=== PATIENT | female | born 1960 | race Caucasian/White ===

== ENCOUNTER 2019-05-21 14:06 | Emergency (ER) | payer MEDICARE, MEDICAID ==
[~2019-05-21] VITALS: Ht 165.1 cm; Wt 105.2 kg
[~2019-05-21 14:06] MED LIST: HYDR-3454 PO
--- OUTSIDE RECORDS SUMMARY | 2019-05-21 14:22 | XMS REPORT ---
Author Author VIRGIL Contreras Organization [facility] Address Unknown Care Team Providers Care Hvac Service Tech Name Role Phone VIRGIL Contreras Unavailable PROBLEMS Type Condition ICD9-CM Code [id number] Code Onset Dates Condition Status SNOMED Code Problem Routine general medical examination at health care facility V70.0 Active 119008586 ALLERGIES Substance Reaction Event Type Date Status Sulfa (sulfonamide Antibiotics) Unknown Non Drug Allergy Dec, Active Penicillins Unknown Non Drug Allergy Dec, Active SOCIAL HISTORY Never Assessed PLAN OF CARE Activity Details Follow Up prn Reason:TE 20&21 VITAL SIGNS Height 65 in 2016-12-24 Blood pressure systolic 162 mmHg 2016-12-24 Blood pressure diastolic 86 mmHg 2016-12-24 MEDICATIONS Medication Instructions Dosage Frequency Start Date End Date Duration Status metformin 500 mg take 1 tablet (500 mg) by oral route once daily with the evening meal Apr, Active Clindamycin HCl 150 MG Orally 3 times daily 1 capsule 7 days Active RESULTS No Results PROCEDURES Procedure Date Ordered Result Body Site LTD ORAL EVALUATION - PROBLEM FOCUS Dec 24, 2016 INTRAORL-PERIAPICAL 1 FILM 26168 Dec 24, 2016 IMMUNIZATIONS No Known Immunizations MEDICAL (GENERAL) HISTORY Type Description Date Surgical History Appendix removed Surgical History Two knee replacements (Both knees) Surgical History Hysterectomy Surgical History Right hand M3,P3 removal
--- OUTSIDE RECORDS SUMMARY | 2019-05-21 14:22 | XMS REPORT ---
Author Author Migration, Doctor Organization [facility] Address Unknown Phone Unavailable Care Team Providers Care Hub Lead Name Role Phone Migration, Doctor Unavailable Unavailable PROBLEMS Type Condition ICD9-CM Code PVB79-ZP Code Onset Dates Condition Status SNOMED Code Problem Unspecified viral hepatitis without mention of hepatic coma B19.9 Active 918724401 Problem Osteoarthritis of knee M17.10 10 Apr, 2009 Active 432666462 Problem Unspecified asthma(493.90) J45.909 Active 74365133 Problem Essential hypertension I10 Active 58280041 Problem Depressive disorder, not elsewhere classified F32.9 Active 58051486 Problem 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 15 Sep, 2010 Active 785914550 Problem Migraine, unspecified, without mention of intractable migraine without mention of status migrainosus G43.909 Active 71316081 Problem Morbid obesity E66.01 Apr, Active 384077329 Problem Hyperlipemia E78.5 Feb, Active 06881595 ALLERGIES Substance Reaction Event Type Date Status Sulfa (sulfonamide Antibiotics) Unknown Non Drug Allergy Feb, Active Penicillins Unknown Non Drug Allergy Feb, Active ENCOUNTERS Encounter Location Date Diagnosis [address] [address] March, [address] [address] March, Encntr for general adult medical exam w/o abnormal findings Z00.[address] [address] Feb, [address] [address] Feb, [address] [address] Jan, [facility] [address] [facility] [id number] [address] Oct, [facility] [address] [facility] [id number] [place] [phone] Oct, [facility] [id number] [place] [phone] Oct, [facility] [id number] [place] [phone] Apr, [facility] [id number] [place] [phone] Dec, Dental examination Z01.20 [facility] [id number] [place] [phone] Apr, Dental examination V72.2 [facility] [address] [address] Feb, [facility] [id number] [place] [phone] Feb, [facility] [id number] [place] [phone] Apr, [facility] [id number] [place] [phone] Apr, [facility] [id number] [place] [phone] Apr, [facility] [id number] [place] [phone] Apr, [facility] [id number] [place] [phone] Apr, [facility] [id number] [place] [phone] Apr, IMMUNIZATIONS No Known Immunizations SOCIAL HISTORY Never Assessed REASON FOR VISIT [facility] PLAN OF CARE VITAL SIGNS MEDICATIONS Medication Instructions Dosage Frequency Start Date End Date Duration Status metformin 500 mg take 1 tablet (500 mg) by oral route once daily with the evening meal Apr, Active RESULTS No Results PROCEDURES No Known procedures INSTRUCTIONS MEDICATIONS ADMINISTERED No Known Medications MEDICAL (GENERAL) HISTORY Type Description Date Surgical History Appendix removed Surgical History Two knee replacements (Both knees) Surgical History Hysterectomy Surgical History Right hand M3,P3 removal
--- OUTSIDE RECORDS SUMMARY | 2019-05-21 14:22 | XMS REPORT | Continuity of Care Document ---
Author Organization Unknown Address Unknown Allergies Active Description Code Type Severity Reaction Onset Reported/Identified Relationship to Patient Clinical Status Yes Penicillins Drug Allergy N/A N/A 04/22/2014 Yes Sulfa (Sulfonamide Antibiotics) Drug Allergy N/A N/A 04/22/2014 Yes Penicillins [id number] Drug Allergy Unknown N/A 02/03/2015 Yes Sulfa (Sulfonamide Antibiotics) [id number] Drug Allergy Unknown N/A 02/03/2015 Medications There is no data. Problems Date Dx Coded Attending Type Code Diagnosis Diagnosed By 04/22/2014 KWAKU GIMENEZ APRN V70.0 ROUTINE GENERAL MEDICAL EXAMINATION AT A HEALTH CARE FACILITY 02/10/2015 BINTA RODRIGUEZ MD Ot 529.8 02/10/2015 BINTA RODRIGUEZ MD Ot 529.9 Procedures Code [place] [address] ROUTINE VENIPUNCTURE 04/26/2014 89146 CBC 04/26/2014 49757 CMP 04/26/2014 19580 LIPID PANEL 04/26/2014 9276513 GFR CALC (RESULT ONLY) 04/26/2014 82379 TSH 04/26/2014 Results There is no data. Encounters ACCT No. Visit Date/Time Discharge Status Pt. Type Provider Facility Loc./Unit Complaint [id number] 04/26/2014 08:49:00 04/26/2014 23:59:59 CLS Outpatient KWAKU GIMENEZ APRN [id number] 02/10/2015 07:16:00 02/10/2015 12:30:00 DIS Outpatient BINTA RODRIGUEZ MD [id number] 02/11/2015 12:05:23 ACT Document Registration
[2019-05-21] MEDS ORDERED: KETOROLAC 30 MG/ML VIAL ONE (14:28)
[2019-05-21] MEDS ORDERED: TETANUS,DIPTH,PERTUSS P/F (BOOSTRIX) 0.5 ML VIAL IM ONE (14:30)
[2019-05-21] MEDS ORDERED: KETOROLAC 30 MG/ML VIAL IM ONE (14:30)
--- NOTE | 2019-05-21 14:39 | ED Upper Extremity ---
General Chief Complaint: Trauma-Non Activation Stated Complaint: FALL - HEAD/RT ARM PAIN Nursing Triage Note: PATIENT C/O RIGHT ARM/ELBOW PAIN AND HEADACHE. STATES SHE WAS TRYING TO CLIMB INTO A RAISED PICKUP TRUCK WHEN THE HANDLE BROKE AND SHE FELL BACKWARD LANDING ON HER RIGHT ELBOW AND HITTING THE BACK OF HER HEAD. PATIENT DENIES LOSS OF CONCIOUSNESS BUT STATES THAT EVERYTHING SEEMS BLURRY AND SHE FEELS OFF BALANCE. Nursing Sepsis Screen: No Definite Risk Source: patient, family Exam Limitations: no limitations History of Present Illness Date Seen by Provider: May 21, 2019 Time Seen by Provider: 14:32 Initial Comments This 58-year-old white female presents with a complaint of head and right arm contusions after falling out of a non-moving truck. The patient opened the door and inadvertently fell out of the truck striking the posterior aspect of her right elbow and the occiput of her head. Fortunately there was no loss of consciousness. The patient is complaining of head and neck pain. She has no associated paresthesias or weakness. She denies trauma to the chest abdomen or pelvis. She denies other extremity injury other than the posterior aspect of the right elbow. The elbow is mildly painful at rest and is made worse with motion. There is bruising around the right elbow. The patient denies other injury and her accident. Her last tetanus immunization was 5 years ago. Patient denies paresthesias or weakness in her extremities, shortness of breath or chest pain, nausea, vomiting, abdominal pain, visual disturbance, epistaxis, or bleeding from her ears. Allergies and Home Medications Allergies Coded Allergies: Penicillins (Unverified Allergy, Unknown, 02/03/15) Sulfa (Sulfonamide Antibiotics) (Unverified Allergy, Unknown, 02/03/15) Home Medications Hydrocodone Bit/Acetaminophen 1 Each Tablet, 1-2 TAB PO Q4H PRN for PAIN Prescribed by: KAISER HENRIQUEZ on 02/10/15 1205 Patient Home Medication List Home Medication List Reviewed: Yes Review of Systems Constitutional: no symptoms reported EENTM: no symptoms reported Respiratory: no symptoms reported Cardiovascular: no symptoms reported Gastrointestinal: No abdominal pain, No nausea, No vomiting Genitourinary: no symptoms reported Musculoskeletal: joint pain (right elbow) Skin: no symptoms reported Psychiatric/Neurological: No Symptoms Reported Past Jiwjlis-Zngpil-Krpjuo Hx Past Med/Social Hx: Reviewed Nursing Past Med/Soc Hx Patient Social History Recent Foreign Travel: No Contact w/Someone Who Travel: No Recent Infectious Disease Expo: No Immunizations Up To Date Date of Influenza Vaccine: Aug 18, 2014 Past Medical History [employer] History: Hysterectomy Adverse Reaction/Blood Tranf: No Physical Exam Vital Signs Vital Signs - First Documented 05/21/19 14:16 Temp 97.6 Pulse 69 Resp 20 B/P (MAP) 198/102 (134) Pulse Ox 98 O2 Delivery Room Air Capillary Refill : Less Than 3 Seconds Height, Weight, BMI Height: 5'5.00" Weight: 232lbs. oz. 105.016848vd; BMI Method:Stated General Appearance: WD/WN, no apparent distress HEENT: normal ENT inspection, other (there is tenderness palpation over the occiput without evidence of significant soft tissue swelling or bruising) Neck: full range of motion, supple, tender lateral Cardiovascular: regular rate, rhythm Respiratory: lungs clear Gastrointestinal: normal bowel sounds, non tender, soft Back: normal inspection Shoulder: normal inspection, non-tender, no evidence of injury Elbow/Forearm: Right (right elbow demonstrates ecchymosis over the posterior lateral aspects of the joint there was no crepitus or instability. There was tenderness to active range of motion.) Wrist: Yes normal inspection, Yes no evidence of injury Hand: normal inspection, no evidence of injury Neurologic/Tendon: normal sensation, normal motor functions Neurologic/Psychiatric: no motor/sensory deficits, alert, normal mood/affect, oriented x 3 Progress/Results/Core Measures Results/Orders My Orders Orders - TYLER STOVER MD Ct Head/Cervical Spine Wo (05/21/19 14:30) Elbow 3 View Right (05/21/19 14:30) Ketorolac Injection (Toradol Injection) (05/21/19 14:30) Dipht,Pertuss(Acell),Tet Adult (Boostrix (05/21/19 14:30) Ketorolac Injection (Toradol Injection) (05/21/19 14:28) Lidocaine 1% Inj 20 Ml (Xylocaine 1% Inj (05/21/19 16:49) Medications Given in ED Current Medications Medications Dose Ordered Sig/Rona Route Start Time Stop Time Status Last Admin Dose Admin Diphtheria/ Tetanus/Acell Pertussis 0.5 ml ONCE ONCE IM 05/21/19 14:30 05/21/19 14:32 DC 05/21/19 14:37 0.5 ML Ketorolac Tromethamine 30 mg ONCE ONCE IM 05/21/19 14:30 05/21/19 14:32 DC 05/21/19 14:38 30 MG Vital Signs/I&O 05/21/19 14:16 Temp 97.6 Pulse 69 Resp 20 B/P (MAP) 198/102 (134) Pulse Ox 98 O2 Delivery Room Air Blood Pressure Mean: 134 Progress Progress Note : Time: 17:07 Progress Note Patient's workup demonstrated no evidence of acute intracranial hemorrhage or cervical fracture on CT the head and neck. The patient's right elbow films reveal evidence of fracture or dislocation. There was a 1 inch laceration of the posterior aspect of the right elbow that was superficial in nature. This was cleaned copiously with Hibiclens. 1 percent Xylocaine was used for local anesthesia. The wound was closed in running locking manner with 5-0 nylon. Approximately 5 sutures were used for closure. Sterile dressing was applied. Departure Impression Primary Impression: Closed head injury Qualified Codes: S09.90XA - Unspecified injury of head, initial encounter Additional Impressions: Cervical muscle strain Qualified Codes: S16.1XXA - Strain of muscle, fascia and tendon at neck level, initial encounter Laceration of right elbow Qualified Codes: S51.011A - Laceration without foreign body of right elbow, initial encounter Contusion of right elbow Qualified Codes: S50.01XA - Contusion of right elbow, initial encounter Disposition: 01 HOME, SELF-CARE Condition: Improved Departure-Patient Inst. Decision time for Depature: 17:09 Referrals: ROSA ELENA OCHOA MD (PCP/Family) Primary Care Physician Patient Instructions: Cervical Muscle Strain, Closed Head Injury, Laceration Repair With Stitches (DC) Add. Discharge Instructions: Sutures out in 7-10 days. Watch for signs of infection. Ibuprofen alternating with Tylenol for pain. Return if any problems or questions. All discharge instructions reviewed with patient and/or family. Voiced understanding. TYLER STOVER MD May 21, 2019 14:39
--- NOTE | 2019-05-21 15:29 | Diagnostic Imaging Report ---
EXAMINATION: Right elbow, 3 views. INDICATION: Traumatic right elbow pain. COMPARISON: None available. FINDINGS: No fracture or acute osseous abnormality. Bony alignment is maintained. No significant arthritic change is noted. No elbow joint effusion. Soft tissues are unremarkable. IMPRESSION: No acute fracture or dislocation. Dictated by: Dictated on workstation # [id number]
--- NOTE | 2019-05-21 16:14 | Diagnostic Imaging Report ---
PROCEDURE: CT head and CT cervical spine without contrast. TECHNIQUE: Multiple contiguous axial images were obtained through the brain and cervical spine without the use of intravenous contrast. Sagittal and coronal reformations through the cervical spine were then performed. Auto Exposure Controls were utilized during the CT exam to meet ALARA standards for radiation dose reduction. INDICATION: Fall, hit back of head, loss of consciousness. Blurry vision. Loss of balance. EXAMINATION: CT brain and CT cervical spine 05/21/2019. FINDINGS: Brain: No acute hemorrhage or infarct is seen. No mass, mass effect, or midline shift appreciated. No hydrocephalus. There is mild atrophy. The calvarium is intact. IMPRESSION: 1. No acute intracranial process. CT cervical spine: Normal height and alignment of the vertebral bodies noted. No fractures or subluxations appreciated. There is irregularity noted along the right facets at the C6 level which appears chronic or congenital. Mild multilevel spur disc complex is noted. The prevertebral soft tissues demonstrate no evidence for acute abnormalities. IMPRESSION: 1. Chronic findings. No acute process is appreciated. Incidental note is made of incomplete fusion of the posterior arch at C1. Dictated by: Dictated on workstation # [id number]
[2019-05-21] MEDS ORDERED: LIDOCAINE 1% INJ 20 ML 20 ML VIAL ONE (16:49)
[2019-05-21] MEDS ORDERED: HYDR-3455 PO (17:20)
[2019-05-21] MEDS ORDERED: LIDOCAINE 1% INJ 20 ML 20 ML VIAL INJ ONE (17:20)
[2019-05-21 17:24] VITALS: BP 198/85
== END 2019-05-21 17:24 | disposition home or self-care (01) ==
LOC: EDUNIT# 14:06 → ER FS 14:08
DX: S09.90XA Unspecified injury of head, initial encounter (principal); S16.1XXA Strain of muscle, fascia and tendon at neck level, initial encounter; S51.011A Laceration without foreign body of right elbow, initial encounter; Z90.710 Acquired absence of both cervix and uterus; Z88.0 Allergy status to penicillin; Z88.2 Allergy status to sulfonamides; V68.4XXA Person boarding or alighting a heavy transport vehicle injured in noncollision transport accident, initial encounter
CPT/HCPCS: 70450; 72125; 73080; 90471; 90715; 96372

== ENCOUNTER 2020-08-25 07:22 | Emergency (ER) | payer MEDICARE, MEDICAID ==
[~2020-08-25 07:22] MED LIST changes: +HYDR-3455 PO
[2020-08-25 07:31] VITALS: BP 140/59
--- NOTE | 2020-08-25 07:44 | ED Head Injury ---
General Chief Complaint: Head/Cervical Problems Stated Complaint: FALL; HEAD INJ; BLURRY VISION Source: patient Exam Limitations: no limitations History of Present Illness Date Seen by Provider: Aug 25, 2020 Time Seen by Provider: 07:35 Initial Comments 60-year-old female presents with posterior headache which began last night. Patient states that she was walking, tripped and fell backwards hitting the back of her head on her camper wheel well. Denies any loss of consciousness, but states she was confused for a little while. Denies any vomiting. Complains of dizziness, headache and posterior head pain. Does not take blood thinners or aspirin. Denies neck pain, back pain, extremity pain, weakness or paresthesia. Allergies and Home Medications Allergies Coded Allergies: Penicillins (Unverified Allergy, Unknown, 02/03/15) Sulfa (Sulfonamide Antibiotics) (Unverified Allergy, Unknown, 02/03/15) Home Medications Hydrocodone Bit/Acetaminophen 1 Each Tablet, 1-2 TAB PO Q4H PRN for PAIN Prescribed by: KAISER HENRIQUEZ on 02/10/15 1205 Hydrocodone/Acetaminophen 1 Each Tablet, 1 EACH PO Q4-6HR PRN for PAIN-MODERATE Prescribed by: TYLER STOVER MD on 05/21/19 1720 Patient Home Medication List Home Medication List Reviewed: Yes Review of Systems Review of Systems Constitutional: see HPI, dizziness; No fever, No malaise, No weakness Eyes: Denies Blindness; Blurred Vision; Denies Decreased Acuity, Denies Pain, Denies Photophobia, Denies Tunnel Vision Ears, Nose, Mouth, Throat: no symptoms reported Respiratory: No cough, No short of breath, No wheezing Cardiovascular: No chest pain, No edema, No palpitations Gastrointestinal: No loss of appetite, No nausea, No vomiting Musculoskeletal: No back pain, No joint pain, No other Psychiatric/Neurological: See HPI, Headache; Denies Numbness, Denies Tingling, Denies Weakness Past Amuahwv-Vkdcnt-Sbvkah Hx Past Med/Social Hx: Reviewed Nursing Past Med/Soc Hx Patient Social History Alcohol Use: Denies Use Recreational Drug Use: No Smoking Status: Never a Smoker 2nd Hand Smoke Exposure: No Recent Foreign Travel: No Contact w/Someone Who Travel: No Recent Hopitalizations: No Immunizations Up To Date Tetanus Booster (TDap): More than 5yrs Date of Influenza Vaccine: Aug 18, 2014 Seasonal Allergies Seasonal Allergies: No Past Medical History Adenoidectomy, Appendectomy, Bladder Surgery, Breast, Hysterectomy, Orthopedic, Tonsillectomy Respiratory: Yes Asthma Cardiac: No 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 oz. 105.955620sv; BMI Method:Stated General Appearance: WD/WN, no apparent distress HEENT: PERRL/EOMI, normal ENT inspection Neck: non-tender, full range of motion, supple, normal inspection; No limited range of motion Cardiovascular: regular rate, rhythm, no edema Respiratory: chest non-tender, lungs clear Back: normal inspection, no CVA tenderness, no vertebral tenderness Extremities: normal range of motion, non-tender, normal inspection, normal capillary refill Psychiatric: alert, oriented x 3 Crainal Nerves: normal hearing, normal speech, PERRL Coordination/Gait: normal finger to nose, normal gait, negative Romberg's sign Motor/Sensory: no motor deficit, no sensory deficit, no pronator drift Skin: normal color, warm/dry Progress/Results/Core Measures Results/Orders My Orders Orders - YUMIKO TAN DO Ct Head Wo (08/25/20 07:38) Vital Signs/I&O 08/25/20 07:31 Temp 36.4 Pulse 64 Resp 16 B/P (MAP) 140/59 (86) Pulse Ox 99 Diagnostic Imaging Comments INDICATION: Fall, striking the back of the head, blurred vision. Exam compared with study 05/21/2019 FINDINGS: There is no intracranial hemorrhage, hydrocephalus, edema, mass, mass effect or evidence for elevated intracranial pressures. No focal or generalized cerebral edema. The basilar cisterns are patent. No calvarial fracture deformity. There is no hemo-sinus. IMPRESSION: Stable CT head. No hemorrhage or acute appearing abnormality. Dictated on workstation # [id number] Dict: 08/25/20 0754 Trans: 08/25/20 0758 [id number] Interpreted by: KIKE PIZARRO Electronically signed by: Departure Impression Primary Impression: Closed head injury Qualified Codes: S09.90XA - Unspecified injury of head, initial encounter Additional Impression: Concussion without loss of consciousness Qualified Codes: S06.0X0A - Concussion without loss of consciousness, initial encounter Disposition: 01 HOME, SELF-CARE Condition: Stable Departure-Patient Inst. Decision time for Depature: 08:06 Referrals: ROSA ELENA OCHOA MD (PCP/Family) Primary Care Physician Patient Instructions: Closed Head Injury (DC), Concussion, Adult (DC) Add. Discharge Instructions: Follow-up with Dr. Ochoa in one week for reevaluation, sooner if questions or concerns All discharge instructions reviewed with patient and/or family. Voiced understanding. YUMIKO TAN DO Aug 25, 2020 07:44
--- NOTE | 2020-08-25 07:58 | Diagnostic Imaging Report ---
PROCEDURE: CT head without contrast. TECHNIQUE: Multiple contiguous axial images were obtained through the brain without the use of intravenous contrast. Auto Exposure Controls were utilized during the CT exam to meet ALARA standards for radiation dose reduction. INDICATION: Fall, striking the back of the head, blurred vision. Exam compared with study 05/21/2019 FINDINGS: There is no intracranial hemorrhage, hydrocephalus, edema, mass, mass effect or evidence for elevated intracranial pressures. No focal or generalized cerebral edema. The basilar cisterns are patent. No calvarial fracture deformity. There is no hemo-sinus. IMPRESSION: Stable CT head. No hemorrhage or acute appearing abnormality. Dictated by: Dictated on workstation # [id number]
== END 2020-08-25 08:12 | disposition home or self-care (01) ==
LOC: EDUNIT# 07:22 → ER FS 07:23
DX: S06.0X0A Concussion without loss of consciousness, initial encounter (principal); Z88.0 Allergy status to penicillin; Z88.2 Allergy status to sulfonamides; W01.198A Fall on same level from slipping, tripping and stumbling with subsequent striking against other object, initial encounter
CPT/HCPCS: 70450

== ENCOUNTER 2022-03-24 16:08 | Emergency (ER) | payer MEDICARE, MEDICAID ==
[~2022-03-24] VITALS: Ht 165.1 cm; Wt 108.9 kg
[2022-03-24 16:37] LABS: BASOPHILS % (AUTO) 0 % (0-10); EOSINOPHILS # (AUTO) 0.1 10^3/uL (0.0-0.3); EOSINOPHILS % (AUTO) 1 % (0-10); HEMATOCRIT 41 % (35-52); HEMOGLOBIN 13.3 g/dL (11.5-16.0); LYMPHOCYTES # (AUTO) 0.9 10^3/uL (1.0-4.0); LYMPHOCYTES % (AUTO) 11 % (12-44); MEAN CORPUSCULAR HEMOGLOBIN 28 pg (25-34); MEAN CORPUSCULAR HGB CONC 32 g/dL (32-36); MEAN CORPUSCULAR VOLUME 88 fL (80-99); MEAN PLATELET VOLUME 10.4 fL (9.0-12.2); MONOCYTES # (AUTO) 0.8 10^3/uL (0.0-1.0); MONOCYTES % (AUTO) 9 % (0-12); NEUTROPHILS # (AUTO) 6.4 10^3/uL (1.8-7.8); NEUTROPHILS % (AUTO) 78 % (42-75); PLATELET COUNT 210 10^3/uL (130-400); WHITE BLOOD COUNT 8.3 10^3/uL (4.3-11.0)
[2022-03-24] MEDS ORDERED: NS IV 1000 ML 1,000 ML IV SCH (16:45)
[2022-03-24] MEDS ORDERED: fentaNYL INJ 100 MCG/2 ML AMP IVP ONE (16:45)
[2022-03-24] MEDS ORDERED: ONDANSETRON 4 MG/2 ML (SDV) Z0FRAN IVP ONE (16:45)
[2022-03-24 16:57] LABS: ALBUMIN 3.9 GM/DL (3.2-4.5); BILIRUBIN,TOTAL 0.7 MG/DL (0.1-1.0); CALCIUM 9.4 MG/DL (8.5-10.1); CREATININE SERUM 0.96 MG/DL (0.60-1.30); TOTAL PROTEIN 7.3 GM/DL (6.4-8.2)
[2022-03-24] MEDS ORDERED: HOLD METFORMIN - RECEIVED CONTRAST 20 ML VIAL IV SCH (17:00)
[2022-03-24] MEDS ORDERED: CATHETER FLUSH 10 ML SYR IV PRN (17:00)
[2022-03-24] MEDS ORDERED: IOHEXOL 350 MG/ML 100 ML (OMNIPAQUE 350) VIAL IV NR (17:00)
[2022-03-24] MEDS ORDERED: NS 100 ML (IVPB) BAG IV NR (17:00)
[2022-03-24 17:16] LABS: BILIRUBIN,URINE NEGATIVE (NEGATIVE); CLARITY,URINE CLEAR; COLOR,URINE YELLOW; GLUCOSE, URINE (UA) NEGATIVE (NEGATIVE); KETONES,URINE TRACE (NEGATIVE); LEUKOCYTE ESTERASE ,URINE NEGATIVE (NEGATIVE); NITRITE,URINE NEGATIVE (NEGATIVE); PH,URINE 6.5 (5-9); PROTEIN,URINE NEGATIVE (NEGATIVE)
[2022-03-24 17:21] LABS: BACTERIA,URINE TRACE /HPF; WBC,URINE 25-50 /HPF
[2022-03-24] MEDS ORDERED: morphine INJ 10 MG/ML 1ML (SYR OR VIAL) IVP STA (17:51)
--- NOTE | 2022-03-24 17:53 | Diagnostic Imaging Report ---
CLINICAL INDICATIONS: Patient with mid abdominal pain around beltline for two days. Patient has surgical history of appendectomy, hysterectomy and bladder tie-up. EXAM: CT scan of the abdomen and pelvis performed with 100 mL of Omnipaque 350 IV contrast. Sagittal and coronal reformatted images were created. Auto Exposure Controls were utilized during the CT exam to meet ALARA standards for radiation dose reduction. COMPARISON: None. FINDINGS: There is mild atelectasis involving both lung bases. There are degenerative spurs involving both hips. There is lower lumbar spine facet arthropathy. There are degenerative spurs involving the visualized lower thoracic spine and lumbar spine. The liver, spleen, pancreas, gallbladder and adrenal glands are unremarkable. There is no intrahepatic or extrahepatic ductal dilation. There is mild fat stranding adjacent to both kidneys. There is slight ill-defined subtle low density involving the cortical regions of both kidneys. Both renal pelvises are slightly prominent and there is enhancement of the ureteral banegas noted, most pronounced proximally. Otherwise, both kidneys are unremarkable. There is no significant hydronephrosis, stone or mass. Bladder is fluid-filled and otherwise unremarkable. There is no intra-abdominal free air or free fluid. There is no lymphadenopathy. Hiatal hernia is seen. There are postop changes likely related to gastroplasty involving the stomach. There is no intestinal obstruction. Extra-abdominal and extra-pelvic soft tissue structures are unremarkable. The uterus and appendix are surgically absent. IMPRESSION: 1: There is mild perinephric fat stranding slight ill-defined low-density appearance of the cortical regions, bilaterally. There is mild enhancement of the ureteral banegas, bilaterally, most most pronounced proximally. These findings may be related to ureteropyelonephritis. Urinalysis would help better evaluate. 2: Remainder of this exam shows no acute abnormality. 3: Postop changes to the abdomen and pelvis, as described above. Dictated by: Dictated on workstation # [id number]
[2022-03-24] MEDS ORDERED: DICY20TA PO (18:23)
[2022-03-24] MEDS ORDERED: DOCU-143 PO (18:23)
--- NOTE | 2022-03-24 18:23 | ED Abdominal Pain ---
General Chief Complaint: Abdominal/GI Problems Stated Complaint: ABD PAIN Nursing Triage Note: Patient reports she has had mid abdominal pain for 2 days, states the pain has become worse in the last 3 hours. She denies any nausea/vomiting/diarrhea, states she had a recent colonoscopy that revealed diverticulosis. Source of Information: Patient Exam Limitations: No Limitations History of Present Illness Date Seen by Provider: March 24, 2022 Time Seen by Provider: 16:00 Initial Comments Patient is a 61-year-old female presents with intermittent epigastric pain start ing 2 hours prior to ED arrival. Pain is dull nonradiating rated mild to moderate. Is not associate with nausea vomiting constipation or diarrhea. No fever chills or sweats. No flank pain, no urinary frequency urgency dysuria or hematuria. Previous hysterectomy and appendectomy. No history of bowel obstructions. No other acute symptoms or complaints. Timing/Duration: 4-6 Hours Severity/Quality: Moderate Location: Other Radiation: Other Activities at Onset: Other Modifying Factors: Improves With Other Associated Symptoms: Other Allergies and Home Medications Allergies Coded Allergies: Penicillins (Unverified Allergy, Unknown, 02/03/15) Sulfa (Sulfonamide Antibiotics) (Unverified Allergy, Unknown, 02/03/15) hydrocodone (Verified Allergy, Unknown, 03/24/22) Patient Home Medication List Home Medication List Reviewed: Yes Hydrocodone Bit/Acetaminophen (Vicodin 5-300 Mg Tablet) 1 Each Tablet, 1-2 TAB PO Q4H PRN for PAIN Prescribed by: KAISER HENRIQUEZ on 02/10/15 1205 Hydrocodone/Acetaminophen (Vicodin 5-300 mg Tablet) 1 Each Tablet, 1 EACH PO Q4- 6HR PRN for PAIN-MODERATE Prescribed by: TYLER STOVER MD on 05/21/19 1720 Review of Systems Review of Systems Constitutional: see HPI EENTM: See HPI Respiratory: See HPI Cardiovascular: See HPI Gastrointestinal: See HPI Genitourinary: See HPI Musculoskeletal: see HPI Skin: see HPI Psychiatric/Neurological: See HPI Endocrine: See HPI Hematologic/Lymphatic: See HPI All Other Systems Reviewed Negative Unless Noted: Yes Past Gnfddjm-Zcnenu-Cktzei Hx Patient Social History Tobacco Use?: No Substance use?: No Alcohol Use?: Yes Alcohol Frequency: Once in a while Pt feels they are or have been: No Immunizations Up To Date Tetanus Booster (TDap): More than 5yrs Seasonal Allergies Seasonal Allergies: No Past Medical History Surgery/Hospitalization HX: appendectomy, hysterectomy, gastric bypass, diverticulosis, DM, HTN Adenoidectomy, Appendectomy, Bladder Surgery, Breast, Hysterectomy, Orthopedic, Tonsillectomy Respiratory: Yes Asthma Cardiac: No 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 oz. 105.199944cv; 39.00 BMI Method:Stated General Appearance: WD/WN, no apparent distress, other (Anxious) Respiratory: lungs clear, normal breath sounds Cardiovascular: regular rate, rhythm Gastrointestinal: non tender, soft Extremities: non-tender Focused Exam Sepsis Stage: Ruled Out Progress/Results/Core Measures Results/Orders Lab Results Laboratory Tests Test 03/24/22 16:15 03/24/22 16:35 Range/Units Urine Color YELLOW Urine Clarity CLEAR Urine pH 6.5 5-9 Urine Specific [place] 1.010 L 1.016-1.022 Urine Protein NEGATIVE NEGATIVE Urine Glucose (UA) NEGATIVE NEGATIVE Urine Ketones TRACE H NEGATIVE Urine Nitrite NEGATIVE NEGATIVE Urine Bilirubin NEGATIVE NEGATIVE Urine Urobilinogen 1.0 < = 1.0 MG/DL Urine Leukocyte Esterase NEGATIVE NEGATIVE Urine RBC (Auto) TRACE-I H NEGATIVE Urine RBC 5-10 H /HPF Urine WBC 25-50 H /HPF Urine Squamous Epithelial Cells 5-10 /HPF Urine Crystals NONE /LPF Urine Bacteria TRACE /HPF Urine Casts NONE /LPF Urine Mucus SMALL H /LPF Urine Culture Indicated YES White Blood Count 8.3 4.3-11.0 10^3/uL Red Blood Count 4.70 3.80-5.11 10^6/uL Hemoglobin 13.3 11.5-16.0 g/dL Hematocrit 41 35-52 % Mean Corpuscular Volume 88 80-99 fL Mean Corpuscular Hemoglobin 28 25-34 pg Mean Corpuscular Hemoglobin Concent 32 32-36 g/dL Red Cell Distribution Width 14.3 10.0-14.5 % Platelet Count 210 130-400 10^3/uL Mean Platelet Volume 10.4 9.0-12.2 fL Immature Granulocyte % (Auto) 0 % Neutrophils (%) (Auto) 78 H 42-75 % Lymphocytes (%) (Auto) 11 L 12-44 % Monocytes (%) (Auto) 9 0-12 % Eosinophils (%) (Auto) 1 0-10 % Basophils (%) (Auto) 0 0-10 % Neutrophils # (Auto) 6.4 1.8-7.8 10^3/uL Lymphocytes # (Auto) 0.9 L 1.0-4.0 10^3/uL Monocytes # (Auto) 0.8 0.0-1.0 10^3/uL Eosinophils # (Auto) 0.1 0.0-0.3 10^3/uL Basophils # (Auto) 0.0 0.0-0.1 10^3/uL Immature Granulocyte # (Auto) 0.0 0.0-0.1 10^3/uL Sodium Level 138 135-145 MMOL/L Potassium Level 4.0 3.6-5.0 MMOL/L Chloride Level 101 98-107 MMOL/L Carbon Dioxide Level 24 21-32 MMOL/L Anion Gap 13 5-14 MMOL/L Blood Urea Nitrogen 16 7-18 MG/DL Creatinine 0.96 0.60-1.30 MG/DL Estimat Glomerular Filtration Rate 67 BUN/Creatinine Ratio 17 Glucose Level 183 H 70-105 MG/DL Calcium Level 9.4 8.5-10.1 MG/DL Corrected Calcium 9.5 8.5-10.1 MG/DL Total Bilirubin 0.7 0.1-1.0 MG/DL Aspartate Amino Transf (AST/SGOT) 19 5-34 U/L Alanine Aminotransferase (ALT/SGPT) 19 0-55 U/L Alkaline Phosphatase 91 40-136 U/L Total Protein 7.3 6.4-8.2 GM/DL Albumin 3.9 3.2-4.5 GM/DL Lipase 24 8-78 U/L My Orders Orders - JERMAIN ROWLAND DO Cbc With Automated Diff (03/24/22 16:31) Comprehensive Metabolic Panel (03/24/22 16:31) Ua Culture If Indicated (03/24/22 16:31) Lipase (03/24/22 16:31) Fentanyl Inj (Sublimaze Injection) (03/24/22 16:45) Ondansetron Injection (Zofran Injectio (03/24/22 16:45) Ns Iv 1000 Ml (Sodium Chloride 0.9%) (03/24/22 16:45) Ct Abdomen/Pelvis W (03/24/22 16:32) Iohexol Injection (Omnipaque 350 Mg/Ml 1 (03/24/22 17:00) Received Contrast (Hold Metformin- Contr (03/24/22 17:00) Sodium Chloride Flush (Catheter Flush Sy (03/24/22 17:00) Ns (Ivpb) (Sodium Chloride 0.9% Ivpb Bag (03/24/22 17:00) Urine Culture (03/24/22 16:15) Morphine Injection (Morphine Injection (03/24/22 17:51) Medications Given in ED Current Medications Medications Dose Ordered Sig/Rona Route Start Time Stop Time Status Last Admin Dose Admin Fentanyl Citrate 50 mcg ONCE ONCE IVP 03/24/22 16:45 03/24/22 16:46 DC 03/24/22 16:40 50 MCG Ondansetron HCl 4 mg ONCE ONCE IVP 03/24/22 16:45 03/24/22 16:46 DC 03/24/22 16:40 4 MG Sodium Chloride 10 ml NEEDED PRN IV 03/24/22 17:00 03/24/22 17:17 10 ML Vital Signs/I&O 03/24/22 16:15 Temp 37.1 Pulse 85 Resp 18 B/P (MAP) 165/106 (125) Pulse Ox 94 O2 Delivery Room Air Blood Pressure Mean: 125 Departure Communication (Admissions) CT abdomen pelvis: Haziness around kidneys without other identifiable abdominal source of pathology per radiology report Nondescript abdominal pain/tenderness. Abdomen soft, nonsurgical on repeat evaluation. Lab work and imaging studies reassuring. Recommendations supportive care with watchful waiting and PCP follow-up. Return precautions reviewed. Patient verbalizes understanding and agreement with discharge instructions prior to departure. Impression Primary Impression: Abdominal pain Disposition: 01 HOME, SELF-CARE Condition: Stable Departure-Patient Inst. Decision time for Depature: 18:21 Referrals: ROSA ELENA OCHOA MD (PCP/Family) Primary Care Physician Patient Instructions: Abdominal Pain, Adult ED Add. Discharge Instructions: You were evaluated in the emergency department for abdominal pain. Lab and imaging studies were performed and are nondiagnostic. Please increase fluids take Colace and newly prescribed pain medication as directed. Follow-up with your PCP early next week for reevaluation. Return to the ED if new or worsening symptoms. All discharge instructions reviewed with patient and/or family. Voiced underst anding. Scripts Docusate Sodium (Colace) 100 Mg Capsule 100 MG PO DAILY, #10 CAP Prov: JERMAIN ROWLAND DO 03/24/22 Dicyclomine HCl (Dicyclomine HCl) 20 Mg Tablet 20 MG PO QID, #10 TAB Prov: JERMAIN ROWLAND DO 03/24/22 JERMAIN ROWLAND DO March 24, 2022 18:23
[2022-03-24 18:41] VITALS: BP 164/80
== END 2022-03-24 18:43 | disposition home or self-care (01) ==
LOC: EDUNIT# 16:08 → ER FS 16:09
DX: R10.13 Epigastric pain (principal); Z87.19 Personal history of other diseases of the digestive system; Z90.49 Acquired absence of other specified parts of digestive tract; Z90.710 Acquired absence of both cervix and uterus
CPT/HCPCS: 36415; 74177; 80053; 81000; 83690; 85025; 87088

== ENCOUNTER → 2022-04-12 | Outpatient (CLI) | payer MEDICARE, MEDICAID ==
[~2022-04-12] MED LIST changes: +DICY20TA PO; +DOCU-143 PO
--- NOTE | 2022-04-12 14:49 | Diagnostic Imaging Report ---
INDICATION: Left shoulder pain. FINDINGS: 3 views. The glenohumeral joint is in good alignment. Articulating surfaces are smooth. Joint spaces are well-maintained. AC joint shows good alignment with moderate hypertrophic change. There are no fractures. No soft tissue calcification. IMPRESSION: Moderate arthritic changes of the AC joint with normal glenohumeral joint. Dictated by: Dictated on workstation # [id number]
== END ==
LOC: ORTHO 11:13
PROVIDERS: ATTEND Orthopaedic Surgery
DX: M19.012 Primary osteoarthritis, left shoulder (principal); M25.511 Pain in right shoulder; M25.532 Pain in left wrist
CPT/HCPCS: 73030; G0463; 99203

== ENCOUNTER → 2022-04-25 | Outpatient (CLI) | payer MEDICARE, MEDICAID ==
--- NOTE | 2022-04-25 12:48 | Diagnostic Imaging Report ---
INDICATION: Shoulder pain with no known injuries. EXAMINATION: Left shoulder MRI without contrast on 04/25/2022. FINDINGS: Minimal changes of tendinosis are noted within the subscapularis tendon with no focal tears appreciated. There is a partial-thickness intrasubstance tear at the footprint within the supraspinatus tendon. There is tendinosis throughout the infraspinatus tendon. No full-thickness tear is appreciated. The labrum is grossly unremarkable on this noncontrast examination. The biceps tendon anchor is intact. There is narrowing, spurring, and edema at the acromioclavicular joint, consistent with osteoarthritic changes. There is no acute osseous abnormality. Muscle volume is preserved. The visualized axilla is unremarkable. IMPRESSION: 1. Tendinosis within the subscapularis and infraspinatus tendons. 2. Partial-thickness intrasubstance tear of the supraspinatus tendon. 3. Acromioclavicular osteoarthritic changes. Dictated by: Dictated on workstation # [id number]
== END ==
LOC: RAD 12:30
PROVIDERS: ATTEND Orthopaedic Surgery
DX: M75.102 Unspecified rotator cuff tear or rupture of left shoulder, not specified as traumatic (principal); M19.012 Primary osteoarthritis, left shoulder; M67.814 Other specified disorders of tendon, left shoulder
CPT/HCPCS: 73221

== ENCOUNTER 2022-06-18 18:03 | Emergency (ER) | payer MEDICARE, MEDICAID ==
[~2022-06-18] VITALS: Ht 165.1 cm; Wt 106.1 kg
[2022-06-18] MEDS ORDERED: NS IV 1000 ML 1,000 ML IV SCH (18:45)
[2022-06-18 19:01] LABS: BASOPHILS % (AUTO) 1 % (0-10); EOSINOPHILS # (AUTO) 0.2 10^3/uL (0.0-0.3); EOSINOPHILS % (AUTO) 2 % (0-10); HEMATOCRIT 40 % (35-52); HEMOGLOBIN 12.9 g/dL (11.5-16.0); LYMPHOCYTES # (AUTO) 1.4 10^3/uL (1.0-4.0); LYMPHOCYTES % (AUTO) 19 % (12-44); MEAN CORPUSCULAR HEMOGLOBIN 29 pg (25-34); MEAN CORPUSCULAR HGB CONC 32 g/dL (32-36); MEAN CORPUSCULAR VOLUME 89 fL (80-99); MEAN PLATELET VOLUME 10.9 fL (9.0-12.2); MONOCYTES # (AUTO) 0.6 10^3/uL (0.0-1.0); MONOCYTES % (AUTO) 8 % (0-12); NEUTROPHILS # (AUTO) 5.3 10^3/uL (1.8-7.8); NEUTROPHILS % (AUTO) 70 % (42-75); PLATELET COUNT 195 10^3/uL (130-400); WHITE BLOOD COUNT 7.5 10^3/uL (4.3-11.0)
[2022-06-18 19:28] LABS: BILIRUBIN,TOTAL 0.3 MG/DL (0.1-1.0); CALCIUM 9.7 MG/DL (8.5-10.1); CREATININE SERUM 1.62 MG/DL (0.60-1.30); POTASSIUM 3.7 MMOL/L (3.6-5.0); TOTAL PROTEIN 7.4 GM/DL (6.4-8.2)
[2022-06-18 19:34] LABS: BILIRUBIN,URINE NEGATIVE (NEGATIVE); CLARITY,URINE CLOUDY; COLOR,URINE YELLOW; GLUCOSE, URINE (UA) NEGATIVE (NEGATIVE); KETONES,URINE NEGATIVE (NEGATIVE); LEUKOCYTE ESTERASE ,URINE 1+ (NEGATIVE); NITRITE,URINE POSITIVE (NEGATIVE); PROTEIN,URINE TRACE (NEGATIVE)
[2022-06-18 19:47] LABS: WBC,URINE 50-100 /HPF
[2022-06-18 19:48] LABS: BACTERIA,URINE LARGE /HPF
--- NOTE | 2022-06-18 20:48 | ED GU-Female ---
General Chief Complaint: - Reproductive Stated Complaint: LOWER BACK PAIN Nursing Triage Note: Patient reports she was diagnosed with a UTI two weeks ago, states she has been taking cipro and received a phone call from walk-in care telling her to come to the ED to get IV antibiotics because her urine culture revealed that she needed a different antibiotic. Patient states she is having burning with urination, but denies any other symptoms. History of Present Illness Date Seen by Provider: Jun 18, 2022 Time Seen by Provider: 18:14 Initial Comments 62-year-old female patient with history of diabetes mellitus, hypertension, GERD, asthma, recurrent UTI presented to ER after advised from urgent care to come to ER for IV antibiotic. Patient states she has had urinary frequency and dysuria, bilateral flank pain, suprapubic discomfort for several days and was seen at urgent care 5 days ago and was started on Cipro. Patient states the urgent care staff called her today and told her they have a copy of her urine culture and needs to come to ER for IV antibiotic. Patient states she has had frequent UTIs with resistant to several medication and usually needs IV antibiotic at hospital. Patient states she had history of urosepsis but denies fever and chills at this time. Patient also states she had history of abnormal renal function test. According to urine culture from urgent care she had more than 100,000 E. coli that was sensitive to gentamicin, Zosyn, imipenem, tobramycin and Fortaz(Ceftazidime). Allergies and Home Medications Allergies Coded Allergies: Penicillins (Unverified Allergy, Unknown, 02/03/15) Sulfa (Sulfonamide Antibiotics) (Unverified Allergy, Unknown, 02/03/15) hydrocodone (Verified Allergy, Unknown, 03/24/22) Patient Home Medication List Home Medication List Reviewed: Yes Dicyclomine HCl (Dicyclomine HCl) 20 Mg Tablet, 20 MG PO QID Prescribed by: JERMAIN ROWLAND on 03/24/221822 Docusate Sodium (Colace) 100 Mg Capsule, 100 MG PO DAILY Prescribed by: JERMAIN ROWLAND on 03/24/221822 Hydrocodone Bit/Acetaminophen (Vicodin 5-300 Mg Tablet) 1 Each Tablet, 1-2 TAB PO Q4H PRN for PAIN Prescribed by: KAISER HENRIQUEZ on 02/10/15 1205 Hydrocodone/Acetaminophen (Vicodin 5-300 mg Tablet) 1 Each Tablet, 1 EACH PO Q4- 6HR PRN for PAIN-MODERATE Prescribed by: TYLER STOVER MD on 05/21/19 1720 Review of Systems Review of Systems Constitutional: no symptoms reported EENTM: no symptoms reported Respiratory: no symptoms reported Cardiovascular: no symptoms reported Gastrointestinal: see HPI Genitourinary: see HPI Musculoskeletal: see HPI Skin: no symptoms reported Psychiatric/Neurological: No Symptoms Reported Endocrine: No Symptoms Reported All Other Systemes Reviewed Negative Unless Noted: Yes Past Ldusiwi-Chbiwf-Lxmbog Hx Patient Social History Tobacco Use?: No Substance use?: No Alcohol Use?: Yes Alcohol Frequency: Once in a while Pt feels they are or have been: No Immunizations Up To Date Tetanus Booster (TDap): More than 5yrs 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: [place] Seasonal Allergies Seasonal Allergies: No Past Medical History Surgery/Hospitalization HX: appendectomy, hysterectomy, gastric bypass, diverticulosis, DM, HTN Adenoidectomy, Appendectomy, Bladder Surgery, Breast, Hysterectomy, Orthopedic, Tonsillectomy Respiratory: Yes Asthma Cardiac: No 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 oz. 105.782320py; 38.00 BMI Method:Stated General Appearance: WD/WN, no apparent distress HEENT: PERRL/EOMI, normal ENT inspection Neck: non-tender, full range of motion, supple, normal inspection Cardiovascular: regular rate, rhythm, no edema, no gallop, no JVD, no murmur Respiratory: chest non-tender, lungs clear, normal breath sounds, no respiratory distress Gastrointestinal: normal bowel sounds, non tender, soft, no organomegaly Back: normal inspection, no CVA tenderness, no vertebral tenderness Extremities: normal range of motion, non-tender, normal inspection Neurologic/Psychiatric: alert, normal mood/affect, oriented x 3 Skin: normal color, warm/dry Focused Exam Lactate Level 06/18/22 18:51: Lactic Acid Level 1.75 Lactic Acid Level Laboratory Tests Test 06/18/22 18:51 Lactic Acid Level 1.75 MMOL/L (0.50-2.00) Progress/Results/Core Measures Suspected Sepsis SIRS Temperature: Pulse: 82 Respiratory Rate: 14 Laboratory Tests 06/18/22 18:51: White Blood Count 7.5 Blood Pressure 194 /99 Mean: 130 06/18/22 18:51: Lactic Acid Level 1.75 Laboratory Tests 06/18/22 18:51: Creatinine 1.62H, Platelet Count 195, Total Bilirubin 0.3 Results/Orders Lab Results Laboratory Tests Test 06/18/22 18:51 06/18/22 19:17 Range/Units White Blood Count 7.5 4.3-11.0 10^3/uL Red Blood Count 4.51 3.80-5.11 10^6/uL Hemoglobin 12.9 11.5-16.0 g/dL Hematocrit 40 35-52 % Mean Corpuscular Volume 89 80-99 fL Mean Corpuscular Hemoglobin 29 25-34 pg Mean Corpuscular Hemoglobin Concent 32 32-36 g/dL Red Cell Distribution Width 15.3 H 10.0-14.5 % Platelet Count 195 130-400 10^3/uL Mean Platelet Volume 10.9 9.0-12.2 fL Immature Granulocyte % (Auto) 0 % Neutrophils (%) (Auto) 70 42-75 % Lymphocytes (%) (Auto) 19 12-44 % Monocytes (%) (Auto) 8 0-12 % Eosinophils (%) (Auto) 2 0-10 % Basophils (%) (Auto) 1 0-10 % Neutrophils # (Auto) 5.3 1.8-7.8 10^3/uL Lymphocytes # (Auto) 1.4 1.0-4.0 10^3/uL Monocytes # (Auto) 0.6 0.0-1.0 10^3/uL Eosinophils # (Auto) 0.2 0.0-0.3 10^3/uL Basophils # (Auto) 0.0 0.0-0.1 10^3/uL Immature Granulocyte # (Auto) 0.0 0.0-0.1 10^3/uL Sodium Level 143 135-145 MMOL/L Potassium Level 3.7 3.6-5.0 MMOL/L Chloride Level 106 98-107 MMOL/L Carbon Dioxide Level 24 21-32 MMOL/L Anion Gap 13 5-14 MMOL/L Blood Urea Nitrogen 27 H 7-18 MG/DL Creatinine 1.62 H 0.60-1.30 MG/DL Estimat Glomerular Filtration Rate 35 BUN/Creatinine Ratio 17 Glucose Level 183 H 70-105 MG/DL Lactic Acid Level 1.75 0.50-2.00 MMOL/L Calcium Level 9.7 8.5-10.1 MG/DL Corrected Calcium 9.7 8.5-10.1 MG/DL Total Bilirubin 0.3 0.1-1.0 MG/DL Aspartate Amino Transf (AST/SGOT) 28 5-34 U/L Alanine Aminotransferase (ALT/SGPT) 26 0-55 U/L Alkaline Phosphatase 85 40-136 U/L Total Protein 7.4 6.4-8.2 GM/DL Albumin 4.0 3.2-4.5 GM/DL Urine Color YELLOW Urine Clarity CLOUDY Urine pH 5.0 5-9 Urine Specific [place] >=1.030 1.016-1.022 Urine Protein TRACE H NEGATIVE Urine Glucose (UA) NEGATIVE NEGATIVE Urine Ketones NEGATIVE NEGATIVE Urine Nitrite POSITIVE H NEGATIVE Urine Bilirubin NEGATIVE NEGATIVE Urine Urobilinogen 0.2 < = 1.0 MG/DL Urine Leukocyte Esterase 1+ H NEGATIVE Urine RBC (Auto) TRACE-I H NEGATIVE Urine RBC 2-5 H /HPF Urine WBC 50-100 H /HPF Urine Squamous Epithelial Cells 5-10 /HPF Urine Crystals NONE /LPF Urine Bacteria LARGE H /HPF Urine Casts NONE /LPF Urine Mucus SMALL H /LPF Urine Culture Indicated YES My Orders Orders - VLADIMIR LANDAVERDE MD Ua Culture If Indicated (06/18/22 18:19) Cbc With Automated Diff (06/18/22 18:35) Comprehensive Metabolic Panel (06/18/22 18:35) Blood Culture (06/18/22 18:35) Ed Iv/Invasive Line Start (06/18/22 18:35) Lactic Acid Analyzer (06/18/22 18:35) Ns Iv 1000 Ml (Sodium Chloride 0.9%) (06/18/22 18:45) Urine Culture (06/18/22 19:17) Ed Admission (Communication) (06/18/22 20:48) Vital Signs/I&O 06/18/22 18:12 Temp 36.8 Pulse 82 Resp 14 B/P (MAP) 194/99 (130) Pulse Ox 97 O2 Delivery Room Air Capillary Refill : Less Than 3 Seconds Blood Pressure Mean: 130 Progress Note : Progress Note Evaluation of patient in ER showed 62-year-old female patient current UTI with resistant to most of antibiotic was sent from urgent care for IV antibiotic. The urine culture from urgent care showing she is sensitive to gentamicin that cannot be given because of renal insufficiency, Zosyn that cannot be given because of allergy to penicillin, tobramycin, imipenem and Fortaz. Planned to start imipenem that is available at [facility] but not at this emergency room. Dr. Thornton accepted patient at 2031 to [place] [facility] because of no respond after leaving phone message to Dr. Ochoa. Patient contacted [facility] and Dr. Silvina Rueda called back and accepted admission to [facility]. He did not mention what antibiotic planned to start for the patient. Patient plans to go POV. Transfer paperwork was filled out. Patient had a stable vital sign. Departure Communication (Admissions) Time/Spoke to Admitting Phy: 20:54 Dr. Silvina Rueda accepted transfer to [facility] for Dr. Rosa Elena Ochoa. Impression Primary Impression: Recurrent urinary tract infection Additional Impressions: Renal insufficiency Uncontrolled diabetes mellitus Qualified Codes: E11.65 - Type 2 diabetes mellitus with hyperglycemia Obesity Qualified Codes: E66.9 - Obesity, unspecified; Z68.38 - Body mass index [BMI] 38.0-38.9, adult Disposition: XFER [facility] Condition: Stable Admissions Decision to Admit Reason: Admit from ER (General) Decision to Admit/Date: Jun 18, 2022 Time/Decision to Admit Time: 20:55 Transfer Transfer Reason: Patient preference Time Spoke to Accepting Phy: 20:54 Transfer Progress Notes Patient is a patient of Dr. Rosa Elena Ochoa and requested Dr. Ochoa. Dr. Ochoa did not respond to his phone call after leaving couple of message for him. Dr. Thornton is stated she is admitting for Dr. Ochoa. Patient contacted [facility] and Dr silvina Rueda called me at 2053 and he stated he is going to admit patient for Dr. Rosa Elena Ochoa because he is out of town. Patient wants to go POV. Method of Transfer: Private Vehicle Departure-Patient Inst. Referrals: ROSA ELENA OCHOA MD (PCP/Family) Primary Care Physician VLADIMIR LANDAVERDE MD Jun 18, 2022 20:48
[2022-06-18 21:12] VITALS: BP 168/82
== END 2022-06-18 21:14 | disposition short-term general hospital (02) ==
LOC: EDUNIT# 18:03 → ER FS 18:05
DX: N39.0 Urinary tract infection, site not specified (principal); N28.9 Disorder of kidney and ureter, unspecified; E11.65 Type 2 diabetes mellitus with hyperglycemia; E66.9 Obesity, unspecified; Z68.38 Body mass index [BMI] 38.0-38.9, adult
CPT/HCPCS: 36415; 80053; 81000; 83605; 85025; 87040; 87077; 87088; 87184; 87186

== ENCOUNTER 2022-10-16 14:23 | Emergency (ER) | payer OTHER, MEDICAID ==
[~2022-10-16] VITALS: Ht 165 cm; Wt 110.0 kg
--- NOTE | 2022-10-16 14:33 | ED Upper Extremity ---
General Stated Complaint: RT ARM/HAND PAIN History of Present Illness Date Seen by Provider: Oct 16, 2022 Time Seen by Provider: 14:32 Initial Comments 62-year-old female presents with right wrist pain. She reports that it woke around 2 AM this morning. She does not have any known injury. There is no swelling. She reports the pain gets worse with movement especially rotation or flexion. She complains of worsening symptoms in her hand if you flex it with some tingling. Patient does have frequent use of her hands and arms at her job. Allergies and Home Medications Allergies Coded Allergies: Penicillins (Unverified Allergy, Unknown, 02/03/15) Sulfa (Sulfonamide Antibiotics) (Unverified Allergy, Unknown, 02/03/15) hydrocodone (Verified Allergy, Unknown, 03/24/22) Patient Home Medication List Home Medication List Reviewed: Yes Dicyclomine HCl (Dicyclomine HCl) 20 Mg Tablet, 20 MG PO QID Prescribed by: JERMAIN ROWLAND on 03/24/221822 Docusate Sodium (Colace) 100 Mg Capsule, 100 MG PO DAILY Prescribed by: JERMAIN ROWLAND on 03/24/22 182 Hydrocodone Bit/Acetaminophen (Vicodin 5-300 Mg Tablet) 1 Each Tablet, 1-2 TAB PO Q4H PRN for PAIN Prescribed by: KAISER HENRIQUEZ on 02/10/15 1205 Hydrocodone/Acetaminophen (Vicodin 5-300 mg Tablet) 1 Each Tablet, 1 EACH PO Q4- 6HR PRN for PAIN-MODERATE Prescribed by: TYLER STOVER MD on 05/21/19 1720 Review of Systems Constitutional: no symptoms reported EENTM: no symptoms reported Respiratory: no symptoms reported Cardiovascular: no symptoms reported Gastrointestinal: no symptoms reported Musculoskeletal: see HPI Skin: no symptoms reported Past Jbguclg-Smtymg-Cfnbsg Hx Immunizations Up To Date Tetanus Booster (TDap): More than 5yrs Seasonal Allergies Seasonal Allergies: No Past Medical History Surgery/Hospitalization HX: appendectomy, hysterectomy, gastric bypass, diverticulosis, DM, HTN Adenoidectomy, Appendectomy, Bladder Surgery, Breast, Hysterectomy, Orthopedic, Tonsillectomy Respiratory: Yes Asthma Cardiac: No Neurological: No 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 oz. 105.959478xt; 38.00 BMI Method:Stated General Appearance: WD/WN Neck: full range of motion, supple Cardiovascular: normal peripheral pulses Respiratory: lungs clear, normal breath sounds Elbow/Forearm: normal inspection Wrist: No bone tenderness, No deformity; Yes limited ROM (Patient's symptoms consistent with carpal tunnel syndrome), Yes soft tissue tenderness Hand: normal inspection, non-tender Neurologic/Psychiatric: alert, normal mood/affect, oriented x 3 Skin: normal color, warm/dry Progress/Results/Core Measures Results/Orders My Orders Orders - FIORELLA GODFREY DO Us Venous Upper Ext Rt (10/16/22 14:37) Wrist-[place] (10/16/22 15:22) Vital Signs/I&O 10/16/22 14:45 Pulse 75 Resp 20 B/P (MAP) 189/90 (123) Pulse Ox 99 Progress Progress Note : Progress Note Patient's ultrasound shows no acute findings. Patient's symptoms are consistent with carpal tunnel syndrome however she felt that there might be something else. We will place her in a cock up universal wrist splint, recommended anti- inflammatories topical lidocaine and Voltaren. She should wear the splint as directed. She should follow with her primary care provider or online merchandising specialist in 1 week for recheck of her symptoms. She is stable and discharged home Departure Impression Primary Impression: Right wrist pain Disposition: 01 HOME, SELF-CARE Condition: Stable Departure-Patient Inst. Referrals: ROSA ELENA OCHOA MD (PCP) Primary Care Physician Patient Instructions: Common Wrist Injuries (DC), Upper Extremity Exercises Seated for the Elbow and Wrist, Tendonitis (DC) Add. Discharge Instructions: Please wear wrist splint except for when showering for the next week. Commend ibuprofen in her milligrams every 8 hours as needed for pain. You may use ice for the first 24 to 48 hours then warm moist heat. Gentle wrist stretching. Please follow-up with your primary care provider or online merchandising specialist in 1 week for repeat evaluation and further outpatient management as needed FIORELLA GODFREY DO Oct 16, 2022 14:32
[2022-10-16 14:45] VITALS: BP 189/90
[2022-10-16] MEDS ORDERED: KETOROLAC 60 MG/2 ML VIAL IM STA (15:24)
--- NOTE | 2022-10-16 15:24 | Diagnostic Imaging Report ---
INDICATION: Right upper extremity pain TECHNIQUE: Color and grayscale sonographic images with duplex Doppler evaluation of the upper extremity venous system. CORRELATION STUDY: None FINDINGS: There is no intraluminal filling defect within the visualized portion of the internal jugular, subclavian, axillary, brachial and/or basilic veins to suggest thrombus formation. Where applicable, these vessels demonstrate normal response to compression and augmentation. There is no significant soft tissue fluid collection. IMPRESSION: 1. Negative for venous thrombus of the right upper extremity. Dictated by: Dictated on workstation # [id number]
[2022-10-16] MEDS ORDERED: KETOROLAC 15 MG/ML VIAL ONE (15:32)
== END 2022-10-16 15:45 | disposition home or self-care (01) ==
LOC: EDUNIT# 14:23 → ER FS 14:25
DX: M25.531 Pain in right wrist (principal)
CPT/HCPCS: 99283

== ENCOUNTER → 2022-10-23 | Outpatient (CLI) | payer OTHER, MEDICAID | LOC: ORTHO 14:29 | PROVIDERS: ATTEND Orthopaedic Surgery | DX: G62.9 Polyneuropathy, unspecified (principal) | CPT/HCPCS: 99213 ==